=== PATIENT | male | born 1960 | race Caucasian/White ===

== ENCOUNTER → 2018-09-04 | Outpatient (CLI) | payer SELFPAY ==
--- NOTE | 2018-09-04 17:32 | RAD ---
Chest, 2 views, 09/04/2018: HISTORY: Postop coronary artery surgery No previous radiographs are available at this time for comparison purposes. There has been a previous median sternotomy. The heart size and pulmonary vascularity are normal. There is an ill-defined opacity in the lingula on the left obscuring the left heart border. The right lung is clear. There is no evidence of pleural fluid or pneumothorax. IMPRESSION: Moderate lingular consolidation suggesting pneumonia. A neoplastic etiology cannot be excluded. Follow-up imaging is suggested. Electronically signed by: Arthur Pierre MD (09/04/2018 5:29 PM) [facility]
== END | disposition home or self-care (01) ==
LOC: RAD 12:16
PROVIDERS: ATTEND Thoracic Surgery (Cardiothoracic Vascular Surgery)
DX: Z48.812 Encounter for surgical aftercare following surgery on the circulatory system (principal); Z95.1 Presence of aortocoronary bypass graft
CPT/HCPCS: 71046

== ENCOUNTER → 2018-12-31 | Outpatient (CLI) | payer MEDICARE, MEDICAID | END | disposition home or self-care (01) | LOC: PCVCCLINIC 14:49 | PROVIDERS: ATTEND Internal Medicine | DX: I25.10 Atherosclerotic heart disease of native coronary artery without angina pectoris (principal); I10 Essential (primary) hypertension; J43.9 Emphysema, unspecified; M06.9 Rheumatoid arthritis, unspecified; K21.9 Gastro-esophageal reflux disease without esophagitis; G47.33 Obstructive sleep apnea (adult) (pediatric); F17.210 Nicotine dependence, cigarettes, uncomplicated; Z79.82 Long term (current) use of aspirin; Z95.1 Presence of aortocoronary bypass graft | CPT/HCPCS: 93005; G0463 ==

== ENCOUNTER → 2019-10-12 | Outpatient (CLI) | payer MEDICARE, MEDICAID ==
[~2019-10-12] MED LIST: PERFLUTREN PROTEIN-A MICROSPHR 0.22 MG/ML 3 ML VIAL. IV ONE
--- NOTE | 2019-10-12 09:42 | PCVCIMAG ---
APPROVED REPORT Study performed: 10/12/2019 08:20:27 EXAM: Comprehensive 2D, Doppler, and color-flow Echocardiogram Patient Location: Echo lab Status: routine BSA: 2.11 HR: 66 bpmBP: 140/80 mmHg Rhythm: NSR Other Information Study Quality: Technically Difficult Risk Factors: Cardiac Risk Factors: HTN, Hyperlipidemia, SOB, Smoking Indications CAD CABG, Myocardial infarction, COPD Echo Enhancing Agent Indication: Endocardial border delineation Agent(s) / Amount(s) Used: Chegg 2D Dimensions IVSd: 12.27 (7-11mm)LVOT Diam: 21.45 (18-24mm) LVDd: 50.26 mm PWd: 10.29 (7-11mm)Ascending Ao: 31.63 (22-36mm) LVDs: 45.25 (25-40mm) Left Atrium: 49.48 (27-40mm) Aortic Root: 33.25 mm LV Single Plane 4CH: 39.79 % LV Single Plane 2CH: 51.04 % Volumes Left Atrial Volume (Systole) Single Plane 4CH: 39.07 mLSingle Plane 2CH: 35.12 mL LA ESV Index: 19.00 mL/m2 Aortic Valve AoV Peak Arun.: 1.11 m/s AO Peak Gr.: 4.89 mmHgLVOT Max P.55 mmHg LVOT Max V: 0.80 m/s DANIELA Vmax: 2.61 cm2 Mitral Valve E/A Ratio: 0.9 MV Decel. Time: 197.43 ms MV E Max Arun.: 0.71 m/s MV A Arun.: 0.82 m/s TDI E/Lateral E': 10.14E/Medial E': 11.83 Medial E' Arun.: 0.06 m/s Lateral E' Aurn.: 0.07 m/s Pulmonary Valve PV Peak Gr.: 1.26 mmHg Pulmonary Vein P Vein S: 0.32 m/sP Vein A: 0.23 m/s P Vein D: 0.34 m/sP Vein A Dur.: 114.2 msec P Vein S/D Ratio: 0.94 Tricuspid Valve TR Peak Arun.: 1.76 m/s TR Peak Gr.: 12.40 mmHg Left Ventricle The left ventricle is normal size. Distal septal and apical hypokinesis There is normal left ventricular wall thickness. Left ventricular systolic function is mildly decreased. LVEF is 45%. Mild diastolic dysfunction is present (impaired relaxation pattern). Right Ventricle The right ventricle is normal size. The right ventricular systolic function is normal. Atria The left atrium size is normal. The right atrium size is normal. Aortic Valve The aortic valve is normal in structure. No aortic regurgitation is present. There is no aortic valvular stenosis. Mitral Valve The mitral valve is normal in structure. There is no mitral valve regurgitation noted. No evidence of mitral valve stenosis. Tricuspid Valve The tricuspid valve is normal in structure. Trace tricuspid regurgitation. Pulmonic Valve The pulmonary valve is normal in structure. There is no pulmonic valvular regurgitation. Great Vessels The aortic root is normal in size. IVC is normal in size and collapses >50% with inspiration. Pericardium There is no pericardial effusion. <Conclusion> Left ventricular systolic function is mildly decreased. Distal septal and apical hypokinesis LVEF is 45%. Mild diastolic dysfunction. The aortic valve is normal in structure. No aortic regurgitation or stenosis The mitral valve is normal in structure. No mitral valve regurgitation Pulmonary artery systolic pressure could not be reliably ascertained There is no pericardial effusion.
== END | disposition home or self-care (01) ==
LOC: PCVCIMAG 08:06
PROVIDERS: ATTEND Internal Medicine
DX: I25.10 Atherosclerotic heart disease of native coronary artery without angina pectoris (principal); I10 Essential (primary) hypertension; Z95.1 Presence of aortocoronary bypass graft; Z88.8 Allergy status to other drugs, medicaments and biological substances
CPT/HCPCS: C8929; Q9956